=== PATIENT | female | born 1980 | race Caucasian/White ===

== ENCOUNTER 2017-02-03 10:16 | Emergency (ER) | payer BC, OTHER ==
[~2017-02-03] VITALS: Ht 162.6 cm; Wt 77.7 kg
[2017-02-03 10:17] VITALS: TEMP 36.6; Ht 162.6 cm; Wt 77.7 kg
[2017-02-03] MEDS ORDERED: SODIUM CHLORIDE 0.9% 1000ML 1,000 ML IV STA (11:09)
[2017-02-03] MEDS ORDERED: METHYLPREDNISOLONE 125 MG VIAL IV STA (11:09)
[2017-02-03] MEDS ORDERED: MECLIZINE HCL 25 MG TAB PO STA (11:09)
--- NOTE | 2017-02-03 11:23 | EMERGENCY ROOM VISIT NOTE ---
History Report prepared by Rudy: Siddhartha Hammond Under the Supervision of: Dr. Veronica Ramirez M.D. First contact with patient: 11:04 Chief Complaint: VERTIGO Stated Complaint: EAR INFECTION - VERTIGO - NAUSEA History of Present Illness The patient is a 36 year old female who presents to the Emergency Room with complaints of persistent dizziness starting 5 days ago and worsening yesterday. The patient started having drainage and crusting of right ear in December. In January , she was diagnosed with an ear infection and was prescribed an Augmentin. The patient finished the Augmentin prescription about 3 weeks ago and her symptoms have persisted since then. She is now having drainage and crusting from the left ear as well. She woke up with dizziness 5 days ago. She had tunnel vision while driving this morning. She describes it to be a room spinning dizziness. She has worsening dizziness with changes in position. She has symptom relief with lying down with her eyes closed. She also complains of nausea and weakness. She has an appointment with ENT on February 08. She denies any sinus pressure, difficulty with speech, focal weakness, fevers, chills, chest pain, abdominal pain, or any other complaints. The patient denies any chance of . She has a history of hysterectomy. Source of History: patient Onset: 5 days ago Position: other (global) Quality: other (dizziness) Timing: other (persistent) Modifying Factors (Worsening): other (changes in position) Associated Symptoms: + nausea, + weakness, No abdominal pain, No chest pain , No chills, No fevers Review of Systems See HPI for pertinent positives & negatives. A total of 10 systems reviewed and were otherwise negative. Past Medical & Surgical Surgical Problems: (1) H/O: hysterectomy Family History Patient reports no known family medical history. Social History Smoking Status: Never Smoker Marital Status: Occupation Status: employed Current/Historical Medications Scheduled Venlafaxine Hcl (Effexor), 75 MG PO DAILY Scheduled PRN Meclizine HCl (Meclizine HCl), 25 MG PO Q8 PRN for vertigo Allergies Coded Allergies: Meperidine (Unverified Allergy, Severe, hives, 02/03/17) Physical Exam Vital Signs Date Time Temp Pulse Resp B/P Pulse Ox O2 Delivery O2 Flow Rate FiO2 02/03/17 13:51 78 16 114/74 99 Room Air 02/03/17 12:23 65 4/28/17 12:07 60 104/68 02/03/17 11:22 68 103/68 75 118/71 71 107/66 02/03/17 10:17 36.6 74 16 117/78 100 Room Air Physical Exam Vital signs reviewed. General: Well-appearing, in no significant distress. HEENT: No scleral icterus, PERRLA, neck supple. Atraumatic. No nystagmus. Cardiovascular: Regular rate and rhythm, no extra sounds. Pulmonary: Clear to auscultation bilaterally, normal work of breathing. Abdomen: Soft, nontender, nondistended, positive bowel sounds. Musculoskeletal: Atraumatic, no peripheral edema. Neurologic: Patient awake alert and oriented x 3, full strength in all 4 extremities. Cranial nerves 2 through 12 grossly intact. Skin: Warm, dry, no rash Medical Decision & Procedures Laboratory Results 02/03/17 11:20 Red Blood Count 4.63, Mean Corpuscular Volume 88.1, Mean Corpuscular Hemoglobin 30.7, Mean Corpuscular Hemoglobin Concent 34.8, Mean Platelet Volume 9.7, Neutrophils (%) (Auto) 71.8, Lymphocytes (%) (Auto) 20.2, Monocytes (%) (Auto) 7.2, Eosinophils (%) (Auto) 0.5, Basophils (%) (Auto) 0.1, Neutrophils # (Auto) 5.84, Lymphocytes # (Auto) 1.65, Monocytes # (Auto) 0.59, Eosinophils # (Auto) 0.04, Basophils # (Auto) 0.01 02/03/17 11:20 Test 02/03/17 11:20 02/03/17 12:55 White Blood Count 8.15 K/uL (4.8-10.8) Red Blood Count 4.63 M/uL (4.2-5.4) Hemoglobin 14.2 g/dL (12.0-16.0) Hematocrit 40.8 % (37-47) Mean Corpuscular Volume 88.1 fL (80-100) Mean Corpuscular Hemoglobin 30.7 pg (25-34) Mean Corpuscular Hemoglobin Concent 34.8 g/dl (32-36) Platelet Count 216 K/uL (130-400) Mean Platelet Volume 9.7 fL (7.4-10.4) Neutrophils (%) (Auto) 71.8 % Lymphocytes (%) (Auto) 20.2 % Monocytes (%) (Auto) 7.2 % Eosinophils (%) (Auto) 0.5 % Basophils (%) (Auto) 0.1 % Neutrophils # (Auto) 5.84 K/uL (1.4-6.5) Lymphocytes # (Auto) 1.65 K/uL (1.2-3.4) Monocytes # (Auto) 0.59 K/uL (0.11-0.59) Eosinophils # (Auto) 0.04 K/uL (0-0.5) Basophils # (Auto) 0.01 K/uL (0-0.2) RDW Standard Deviation 40.0 fL (36.4-46.3) RDW Coefficient of Variation 12.6 % (11.5-14.5) Immature Granulocyte % (Auto) 0.2 % Immature Granulocyte # (Auto) 0.02 K/uL (0.00-0.02) Anion Gap 5.0 mmol/L (3-11) Est Creatinine Clear Calc Drug Dose 100.6 ml/min Estimated GFR () 113.4 Estimated GFR (Non- 97.8 BUN/Creatinine Ratio 14.6 (10-20) Calcium Level 9.1 mg/dl (8.5-10.1) Magnesium Level 2.2 mg/dl (1.8-2.4) Total Bilirubin 0.4 mg/dl (0.2-1) Direct Bilirubin 0.1 mg/dl (0-0.2) Aspartate Amino Transf (AST/SGOT) 10 U/L (15-37) Alanine Aminotransferase (ALT/SGPT) 28 U/L (12-78) Alkaline Phosphatase 48 U/L (45-117) Total Protein 7.6 gm/dl (6.4-8.2) Albumin 4.4 gm/dl (3.4-5.0) Thyroid Stimulating Hormone (TSH) 1.140 uIu/ml (0.300-4.500) Urine Color YELLOW Urine Appearance CLEAR (CLEAR) Urine pH 5.0 (4.5-7.5) Urine Specific [place] 1.012 (1.000-1.030) Urine Protein NEG (NEG) Urine Glucose (UA) NEG (NEG) Urine Ketones NEG (NEG) Urine Occult Blood NEG (NEG) Urine Nitrite NEG (NEG) Urine Bilirubin NEG (NEG) Urine Urobilinogen NEG (NEG) Urine Leukocyte Esterase NEG (NEG) Laboratory results per my review. Medications Administered Medications (Trade) Dose Ordered Sig/[place] Route Start Time Stop Time Status Last Admin Dose Admin Methylprednisolone Sodium Succinate (Solu-Medrol IV) 125 mg NOW STAT IV 02/03/17 11:09 02/03/17 11:12 DC 02/03/17 11:33 125 MG Meclizine HCl 25 mg 25 mg NOW STAT PO 02/03/17 11:09 02/03/17 11:12 DC 02/03/17 11:33 25 MG Sodium Chloride (Nss 1000ml) 1,000 ml @ 999 mls/hr Q1H1M STAT IV 02/03/17 11:09 02/03/17 12:09 DC 02/03/17 11:32 999 MLS/HR ED Course 1104: Past medical records reviewed. The patient was evaluated in room C03. A complete history and physical examination was performed. 1109: Sodium Chloride 1000 ml @ 999 mls/hr IV, Meclizine HCl 25 mg PO, Solu- Medrol IV 125 mg IV 1355: Upon reevaluation, the patient appeared to have improvement of her symptoms. I discussed findings with her. She verbalized agreement of the treatment plan. The patient was discharged home. Medical Decision Differential diagnosis: Etiologies such as benign positional vertigo, dehydration, hypovolemia, anemia, tumor, infection, hypoglycemia, electrolyte abnormalities, cardiac sources, intracerebral event, toxicologic, neurologic, as well as others were entertained. This patient was evaluated and appeared to be in no significant distress. IV access was obtained and laboratory work was drawn. The patient was placed on the teletypesetter monitor and found to be in a normal sinus rhythm. Physical examination is fairly unrevealing otherwise. Patient was hydrated with normal saline solution and given IV Solu-Medrol, oral meclizine. The patient was reevaluated after the above intervention and was feeling improved. The patient was discharged with a prescription for meclizine when necessary. She will follow-up with her primary care physician this week for reevaluation and return to the ER for worsening of symptoms or any medical concerns. Impression Primary Impression: Vertigo Scribe Attestation The scribe's documentation has been prepared under my direction and personally reviewed by me in its entirety. I confirm that the note above accurately reflects all work, treatment, procedures, and medical decision making performed by me. Departure Information Dispostion Home / Self-Care Prescriptions Meclizine HCl (Meclizine HCl) 25 Mg Tab 25 MG PO Q8 Y for vertigo, #15 TAB Prov: Veronica Ramirez M.D. 02/03/17 Referrals Vj García D.O. (PCP) Forms HOME CARE DOCUMENTATION FORM, IMPORTANT VISIT INFORMATION, WORK / SCHOOL INSTRUCTIONS Patient Instructions My [facility], Vertigo Paroxysmal Positional Additional Instructions Diagnosis: Vertigo Meclizine 25 mg every 8 hours as needed for vertigo. Drink plenty of clear fluids. Follow-up with ENT as scheduled this coming week. Return to the ER for worsening of symptoms or any medical concerns.
[2017-02-03] MEDS ORDERED: EFF75 PO (11:53)
[2017-02-03 11:57] LABS: BASO % 0.1 %; BASO ABS # 0.01 K/uL (0-0.2); COMPLETE YES; EOS % 0.5 %; HEMATOCRIT 40.8 % (37-47); IG% 0.2 %; LYMPH % 20.2 %; LYMPH ABS # 1.65 K/uL (1.2-3.4); MEAN CELL VOLUME 88.1 fL (80-100); MEAN CORPUSCULAR HEMOGLOBIN 30.7 pg (25-34); MEAN CORPUSCULAR HGB CONC 34.8 g/dl (32-36); MEAN PLATELET VOLUME 9.7 fL (7.4-10.4); MONO % 7.2 %; NEUT % 71.8 %; PLATELET COUNT 216 K/uL (130-400); RED BLOOD COUNT 4.63 M/uL (4.2-5.4); WHITE BLOOD COUNT 8.15 K/uL (4.8-10.8)
[2017-02-03 12:16] LABS: BUN/CREATININE RATIO 14.6 (10-20); CALCIUM 9.1 mg/dl (8.5-10.1); CREATININE 0.78 mg/dl (0.60-1.20); MAGNESIUM 2.2 mg/dl (1.8-2.4); POTASSIUM 3.9 mmol/L (3.5-5.1)
[2017-02-03 12:27] LABS: THYROID STIMULATING HORMONE 1.14 uIu/ml (0.300-4.500)
[2017-02-03 13:21] LABS: URINE APPEARANCE CLEAR (CLEAR); URINE BILIRUBIN NEG (NEG); URINE COLOR YELLOW; URINE NITRITE NEG (NEG); URINE SPECIFIC GRAVITY 1.012 (1.000-1.030); UROBILINOGEN NEG (NEG); ZZUR CULT IF INDIC CLEAN CATCH NO
[2017-02-03 13:22] LABS: MANUAL MICROSCOPIC REQUIRED? NO; REVIEW REQ? NO
[2017-02-03 13:51] VITALS: BP 114/74; PULSE 78; O2SAT 99
[2017-02-03] MEDS ORDERED: ANT25 PO (13:55)
== END 2017-02-03 14:00 | disposition home or self-care (01) ==
LOC: C.EDB 10:18 → C.EDC 14:00
DX: R42 Dizziness and giddiness (principal); Z86.19 Personal history of other infectious and parasitic diseases; Z90.710 Acquired absence of both cervix and uterus